=== PATIENT | male | born 1960 | race Caucasian/White ===

== ENCOUNTER 2025-03-21 19:10 | Emergency (ER) | payer MEDICARE, MEDICAID ==
[~2025-03-21] VITALS: Ht 177.8 cm; Wt 53.2 kg
[2025-03-21 19:12] VITALS: BP 145/90; TEMP 98.2
[2025-03-21] MEDS: dexamethasone sod phosphate 10mg/ml inj PO STA (20:53)
[2025-03-21 20:54] VITALS: PULSE 89; RESP 20; O2SAT 93
[2025-03-21] MEDS: ipratropium/albuterol 3ml nebule NEB ONE (20:54)
[2025-03-21 21:01] VITALS: PULSE 80; RESP 18; O2SAT 97
[2025-03-21] MEDS ORDERED: PRED20TA PO (21:46)
[2025-03-21] MEDS ORDERED: ALBU8HFA PO (21:46)
--- NOTE | 2025-03-21 21:48 | Physician Documentation ---
History of Present Illness ~ Chief Complaint: Asthma Stated Complaint: "TROUBLE BREATHING" Time Seen by MD: 19:54 Primary Medical Doctor: NONE HPI This is a 64-year-old male with history of asthma who presents with increased shortness of breath after running out of his prescribed asthma medications. Patient additionally reports in the past he has had a daily preventative inhaler however has been out of this for quite some time. Patient is requesting refill of asthma medications. Medication Reconciliation Allergies: Coded Allergies: aspirin (Verified Allergy, Unknown, 03/21/25) Scheduled Prednisone* (Prednisone*), 3 TAB PO DAILY Scheduled PRN albuterol inhaler (Pro-Air Inhaler), 1-2 PUFFS PO Q4H PRN for shortness of breath Past Medical History Past Medical History: Seizures, Asthma Past Surgical History: no surgical history Alcohol Use: Occasionally Drug Use: none Review of Systems ROS Shortness of breath as stated above in the HPI, otherwise all systems are reviewed and negative. Physical Exam Vital Signs: Temperature: 98.2, Source: Oral, Heart Rate: 80, Respiratory Rate: 18, BP: 145/90, Pulse Oximetry: 97, Weight: 53.180 Physical Exam VITALS: Reviewed and as above. GENERAL: Alert, nontoxic appearing, no apparent distress. HEENT: No facial swelling RESPIRATORY: No increased work of breathing, no respiratory distress, speaking in full clear sentences, wheezing in all lung herrera CV: Regular rate and rhythm no murmur Progress Results/Orders Results/Orders Orders - FLORES SUAZO Svn Treatment (03/21/25 ) Completed Orders - FLORES SUAZO Ipratropium/Albuterol Nebule (Ipratrop/A (03/21/25 20:40) Dexamethasone Inj (Decadron 10mg/Ml Inj) (03/21/25 20:40) Medications Received in ER Medications (Trade) Dose Ordered Sig/Az Route PRN Reason Start Time Stop Time Status Last Admin Dose Admin (ipratrop/ albuterol 0.5-3(2.5) MG/3ml nebule) 3 ml ONCE ONCE NEB 03/21/25 20:40 03/21/25 20:48 DC 03/21/25 20:54 3 ML (Decadron 10mg/ ml inj) 10 mg ONCE STAT PO 03/21/25 20:40 03/21/25 20:48 DC 03/21/25 20:53 10 MG Vital Signs 03/21/25 03/21/25 03/21/25 03/21/25 19:12 19:41 20:54 21:01 Temp 98.2 Pulse 94 89 80 Resp 18 18 20 18 B/P (MAP) 145/90 Pulse Ox 97 93 97 O2 Delivery Room Air* Room Air* O2 Flow Rate 0 0 FiO2 21 21 Medical Decision Making Findings This 64-year-old male with a history of asthma presented requesting refill of albuterol inhaler as he has been experiencing increased shortness of breath and episodes of wheezing since running out of prescribed rescue inhaler, on physical exam patient was found to have oozing in all lung herrera and breathing treatment was ordered. Patient reported feeling much better after breathing treatment and wished to be discharge, discussed with patient refilling his albuterol inhaler and placing him on a five day course of prednisone, prior to discharge education and reassessment patient left the emergency department. Patient was otherwise well-appearing with stable vital signs and was appropriate for outpatient follow up. Prescriptions sent for albuterol inhaler and prednisone. Patient is to follow up with primary care provider for further management of his asthma. Differential Dx:Considerations: Include: anxiety, bronchitis, COPD, myocardial infarction, panic attack, pneumonia, respiratory distress, respiratory failure, sinusitis, upper resp. infection Departure Disposition: 01 HOME / SELF CARE / HOMELESS Impression: Primary Impression: Acute asthma Condition: Improved Additional Instructions: Take medications as prescribed, use the albuterol inhaler as prescribed. Follow up with the primary care provider for further management of your asthma, you would likely benefit from being placed on a daily inhaled steroid medication. Please follow up with your primary care provider in the next few days. Please return to the emergency department for any new or worsening concerning symptoms. Referrals: NO PRIMARY CARE PROVIDER (PCP) Prescriptions Prednisone* (Prednisone*) 20 Mg Tablet 3 TAB PO DAILY, #15 TAB Prov: FLORES SUAZO 03/21/25 albuterol inhaler (Pro-Air Inhaler) 8.5 Gm Inhaler 1-2 PUFFS PO Q4H PRN for shortness of breath, #1 INH Prov: FLORES SUAZO 03/21/25 Education Educated: Patient Educated regarding: diagnosis, treatment, prognosis, need for follow up Signature Scribe Signature: No scribe Attestation: The note accurately reflects work and decisions made by me.JOE Renner 03/22/25 01:51 FLORES SUAZO Mar 21, 2025 21:48
== END 2025-03-21 22:28 | disposition home or self-care (01) ==
LOC: ER 19:11
DX: J45.909 Unspecified asthma, uncomplicated (principal); Z88.6 Allergy status to analgesic agent; Z79.899 Other long term (current) drug therapy; Z72.89 Other problems related to lifestyle
CPT/HCPCS: 94640; 99283; J1100; 94760

== ENCOUNTER 2025-05-02 09:10 | Emergency (ER) | payer MEDICARE, MEDICAID ==
[~2025-05-02] VITALS: Ht 167.6 cm; Wt 58.0 kg
[2025-05-02 09:11] VITALS: BP 148/92; TEMP 97.8
--- NOTE | 2025-05-02 09:57 | RADIOLOGY REPORT ---
DI CHEST,SINGLE VIEW, HISTORY: pna COMPARISON: None None TECHNICAL DATA: 1 view of the chest was obtained. FINDINGS: Lines and tubes: None Cardiomediastinal silhouette: normal Pulmonary vasculature: normal Lung expansion: normal Lung airspace: normal Lung interstitium: normal Pleura: normal Pneumothorax: no Bones: Unremarkable Other: no IMPRESSION: No acute intrathoracic abnormality.
--- NOTE | 2025-05-02 11:12 | Physician Documentation ---
History of Present Illness General Chief Complaint: Cold, cough & congestion Stated Complaint: PNEUMONIA Time Seen by MD: 10:46 Primary Medical Doctor: NONE History of Present Illness Initial Comments The patient is a 64-year-old male with a history of COPD (he smokes a pack of cigarettes every three days) who for the past three days has been short of breath, especially when ambulating. He denies chest pain. Medication Reconciliation Allergies: Coded Allergies: aspirin (Verified Allergy, Unknown, 03/21/25) Past Medical History Past Medical History: Seizures, Asthma Past Surgical History: no surgical history Smoking: Non-Smoker Alcohol Use: Occasionally Drug Use: none Review of Systems ROS Constitutional: Denies chills, fatigue, fever, weight gain or weight loss. HEENT: Denies hearing loss, sinus pressure or visual changes. Respiratory: Dyspnea on exertion. Cardiovascular: Denies chest pain, pain while walking (claudication), edema or palpitations. Gastrointestinal: Denies abdominal pain, blood in stool, constipation, diarrhea, heartburn, loss of appetite, nausea or vomiting. Genitourinary: Denies painful urination (dysuria), excessive amount of urine (polyuria) or urinary frequency. Metabolic/Endocrine: Denies cold intolerance, heat intolerance, excessive thirst (polydipsia) or excessive hunger (polyphagia). Neurological: Denies dizziness, extremity numbness, extremity weakness, headaches, seizures or tremors. Psychiatric: Denies anxiety or depression. Integumentary: Denies breast discharge, breast lump, hives, mole change(s), rash or skin lesion. Musculoskeletal: Denies back pain, joint pain, joint swelling or neck pain. Hematologic: Denies easily bleeding, easily bruises, lymphedema or issues with blood clots. Immunologic: Denies food allergies or seasonal allergies. Physical Exam Physical Exam Vital Signs: Temperature: 97.8, Source: Oral, Heart Rate: 96, Respiratory Rate: 16, BP: 148/92, Pulse Oximetry: 97, Weight: 58.000 Oxygen Flow Rate: 0 Physical Exam Physical Exam Vitals and nursing note reviewed. Constitutional: General: Patient is awake, alert, oriented x 4 in no acute distress and well appearing. Speech is clear and lucid. Appearance: Normal appearance. Patient is not ill-appearing, toxic-appearing or diaphoretic. HENT: Head: Normocephalic and atraumatic. Mouth/Throat: Mouth: Mucous membranes are moist. Pharynx: Oropharynx is clear. Eyes: General: No scleral icterus. Extraocular Movements: Extraocular movements intact. Pupils: Pupils are equal, round, and reactive to light. Neck: Supple, no Kernig or Brudzinski sign. Cardiovascular: Rate and Rhythm: Normal rate and regular rhythm. Heart sounds: No murmur heard. Pulmonary: Effort: No respiratory distress. Breath sounds: Wheezes bilaterally Abdominal: General: There is no distension. Palpations: There is no fluid wave, hepatomegaly or mass. Tenderness: There is no abdominal tenderness. There is no guarding. Musculoskeletal: General: No swelling or deformity. Skin: Coloration: Skin is not jaundiced. Findings: No erythema or rash. Neurological: Mental Status: Patient is alert. Progress Results/Orders Results/Orders Orders - JAMA ROCK MD Chest,Single View (05/02/25 09:16) Completed Orders - JAMA ROCK MD Chest,Single View (05/02/25 09:16) Ipratropium/Albuterol Nebule (Ipratrop/A (05/02/25 11:06) Methylprednisolone Sod Succ (Solumedrol (05/02/25 11:10) Azithromycin/Ns 500mg/250ml (Zithromax/N (05/02/25 11:10) Bmp Er (05/02/25 11:06) Cbc/Diff (05/02/25 11:06) MG (05/02/25 11:06) Electrocardiogram (05/02/25 ) Hs Troponin I W Calculations (05/02/25 11:11) Vital Signs 05/02/25 05/02/25 05/02/25 09:11 11:24 11:32 Temp 97.8 Pulse 96 95 96 Resp 16 20 18 B/P (MAP) 148/92 Pulse Ox 97 97 100 O2 Delivery Room Air* Room Air* O2 Flow Rate 0 0 0 FiO2 21 21 Laboratory Tests Test 05/02/25 11:33 White Blood Count 6.3 Red Blood Count 4.60 L Hemoglobin 12.8 L Hematocrit 38.4 L Mean Corpuscular Volume 83.4 Mean Corpuscular Hemoglobin 27.8 Mean Corpuscular Hemoglobin Concent 33.4 Red Cell Distribution Width 15.6 H Platelet Count 446 H Mean Platelet Volume 7.0 L Neutrophils (%) (Auto) 59.2 Lymphocytes (%) (Auto) 27.9 Monocytes (%) (Auto) 10.5 Eosinophils (%) (Auto) 1.4 Basophils (%) (Auto) 1.0 Neutrophils # (Auto) 3.7 Lymphocytes # (Auto) 1.8 Monocytes # (Auto) 0.7 Eosinophils # (Auto) 0.1 Basophils # (Auto) 0.1 CBC Comment Sodium Level 129 L Potassium Level 4.4 Chloride Level 97 L Carbon Dioxide Level 26.8 Anion Gap 5 L Blood Urea Nitrogen 12 Creatinine 0.69 Estimated GFR/1.73 m2 > 90 BUN/Creatinine Ratio 17.4 Glucose Level 102 Calcium Level 8.7 Magnesium Level 2.1 Troponin I High Sensitivity 5 Albumin 4.0 Chemistry Comments Departure Disposition: 09 ADMITTED INPATIENT Admitted to Inpatient Unit: to hospitalist Impression: Primary Impression: COPD exacerbation Condition: Stable Referrals: NO PRIMARY CARE PROVIDER (PCP) Signature Scribe Signature: . Attestation: . JAMA ROCK MD May 02, 2025 11:12
--- NOTE | 2025-05-02 11:20 | ELECTROCARDIOGRAPH REPORT ---
[facility] Test Date: 2025-05-02 Test Time: 11:18:41 Pat Name: ANTOINE DUDLEY Department: EMERGENCY ROOM Room: Gender: M [employer] Project Planner: ANNIE : 1960 Requested By: JAMA ROCK Order Number: [id number] Reading MD: Measurements Intervals [place] Rate: 75 P: 75 [place]: 155 QRS: 71 QRSD: 88 T: 67 QT: 393 QTc: 439 Interpretive Statements Sinus rhythm Abnormal R-wave progression, early transition Borderline ST elevation, anterior leads Please click the below link to view image of tracing.
[2025-05-02] MEDS: ipratropium/albuterol 3ml nebule NEB STA (11:23)
[2025-05-02 11:24] VITALS: PULSE 95; RESP 20; O2SAT 97
[2025-05-02 11:32] VITALS: PULSE 96; RESP 18; O2SAT 100
[2025-05-02] MEDS: azithromycin/NS 500mg/250ml 250 ML IV ONE (11:37)
[2025-05-02 11:59] LABS: MEAN PLATELET VOLUME 7.0 FL (7.4-10.4); RED CELL DISTRIBUTION WIDTH 15.6 % (11.5-14.5)
[2025-05-02 12:12] LABS: CREATININE 0.69 MG/DL (0.60-1.10); TOTAL CARBON DIOXIDE 26.8 MMOL/L (24-32); eCRCL 90 ML/MIN; eGFR > 90 ML/MIN
== END 2025-05-02 15:45 | disposition left against medical advice (07) ==
LOC: ER 09:11
DX: J44.1 Chronic obstructive pulmonary disease with (acute) exacerbation (principal); J18.9 Pneumonia, unspecified organism; Z88.6 Allergy status to analgesic agent; Z72.89 Other problems related to lifestyle
CPT/HCPCS: 36415; 71045; 80048; 83735; 84484; 85025; 93005; 94640; 96365; 96375; 99285; J0456; J2919; 94760